=== PATIENT | female | born 1970 | race Caucasian/White ===

== ENCOUNTER 2017-09-17 13:46 | Outpatient (CLI) | payer OTHER ==
--- NOTE | 2017-09-17 14:33 | RAD ---
LUMBAR SPINE 2 VIEWS: HISTORY: A 47-year-old female with a history of mid and lower back pain for years. FINDINGS: No evidence for a fracture or dislocation. No significant malalignment. No significant disk-osteoph ytosis. IMPRESSION: Unremarkable lumbar spine 2 views. No significant acute process. POS: C
--- NOTE | 2017-09-17 14:33 | RAD ---
THREE VIEWS OF THE THORACIC SPINE: COMPARISON: None. HISTORY: Mid and low back pain for years. FINDINGS: Three views of the thoracic spine show normal height and alignment of the vertebral bodies and interv ertebral disks without fracture or subluxation. No degenerative changes are seen. IMPRESSION: Unremarkable exam. POS: [facility]
== END 2017-09-17 13:47 | disposition home or self-care (01) ==
LOC: SCSRAD 13:46
PROVIDERS: ATTEND Chiropractor
DX: M54.5 Low back pain (principal); M54.2 Cervicalgia; M54.6 Pain in thoracic spine
CPT/HCPCS: 72072; 72100